=== PATIENT | male | born 1970 | race Caucasian/White ===

== ENCOUNTER 2021-10-13 08:00 | Outpatient (CLI) | payer MEDICARE, MEDICAID ==
--- NOTE | 2021-10-13 14:18 | XRAY Report ---
PROCEDURE: Shoulder 3 View RT INDICATIONS: RIGHT SHOULDER PAIN/LIMITED ROM TECHNIQUE: 3 views of the shoulder were acquired. COMPARISON: None. FINDINGS: Bones: No fractures or dislocations. No suspicious bony lesions. Visualized ribs appear intact. M ild degenerative changes noted involving the AC joint. Soft tissues: No suspicious soft tissue calcifications. IMPRESSION: Mild AC joint hypertrophy. Otherwise unremarkable right shoulder radiographs Reviewed by: Merlin Aylaa MD on 10/13/2021 1:17 PM [place] Approved by: Merlin Ayala MD on 10/13/2021 1:17 PM [place] Station ID: [id number]
== END 2021-10-13 23:59 | disposition home or self-care (01) ==
LOC: DI.S 08:00
PROVIDERS: ATTEND Registered Nurse
DX: M19.011 Primary osteoarthritis, right shoulder (principal)

== ENCOUNTER 2021-11-15 12:28 | Outpatient (CLI) | payer MEDICARE, MEDICAID ==
[2021-11-15] MEDS ORDERED: lidocaine 1% 20 ML MDV ONE (12:40)
[2021-11-15] MEDS ORDERED: IOTHALAMATE MEGLUMINE 50 ML VIAL ONE (12:40)
[2021-11-15] MEDS ORDERED: GADOBUTROL 10 MMOL/10 ML VIAL ONE (12:41)
[2021-11-15] MEDS ORDERED: GADOBUTROL 7.5 MMOL/7.5 ML VIAL ONE (12:42)
[2021-11-15] MEDS ORDERED: IOTHALAMATE MEGLUMINE 50 ML VIAL IVP ONE (13:49)
[2021-11-15] MEDS ORDERED: lidocaine 1% 20 ML MDV SUBQ ONE (13:50)
[2021-11-15] MEDS ORDERED: GADOBUTROL 7.5 MMOL/7.5 ML VIAL IVP ONE (13:52)
--- NOTE | 2021-11-15 15:44 | MRI Report ---
PROCEDURE: Arthrogram Shoulder RT INDICATIONS: PAIN IN RIGHT SHOULDER TECHNIQUE: After the administration of 12 mL of dilute intra-articular Gadolinium contrast, oblique coronal T1 a nd T2 spin echo with fat saturation, oblique sagittal T1 spin echo with and without fat saturation, o blique sagittal T2 fast spin echo with fat saturation, axial T1 spin echo with fat saturation through the shoulder. COMPARISON: None. Findings: Supraspinatus: Mild tendinopathy with small partial articular and bursal surface tears. Infraspinatus: Mild tendinopathy with interstitial tear. Subscapularis: No evidence of tear. Teres minor: No evidence of tear. Labrum: Deficiency of the superior, posterior labrum, compatible with degenerative change/tear (401-2 4). Biceps tendon: No evidence of subluxation or tear. Acromioclavicular joint: Mild to moderate arthrosis. Muscle: No significant atrophy. Bones: No significant abnormality. Specifically, no evidence of fracture, contusion, or necrosis. Miscellaneous: Small amount of subacromial/subdeltoid bursal fluid. No intra-articular bodies. Intact coracoclavicular ligament. IMPRESSION: 1. Tear of the superior, posterior labrum, likely degenerative. 2. Mild supraspinatus tendinopathy with small partial articular and bursal surface tears 3. Mild infraspinatus tendinopathy with interstitial tear. 4. 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 5. Mild subacromial/subdeltoid bursitis. Reviewed by: Daniel Albright MD on 11/15/2021 3:43 PM PST Approved by: Daniel Albright MD on 11/15/2021 3:43 PM PST Station ID: [id number]
--- NOTE | 2021-11-15 21:47 | XRAY Report ---
PROCEDURE: Arthrogram Needle Placement INDICATIONS: PAIN IN RIGHT SHOULDER CONTRAST: CONTRAST: yes FLUOROSCOPY TIME: FLUORO TIME: 0.4 and NUMBER IMAGES: 63 TECHNIQUE: The indications, alternatives, benefits, risks, and complications of the procedure were explained to the patient. Written informed consent was obtained and placed in the chart. The shoulder was examin ed fluoroscopically and a site for needle placement chosen for entry into the glenohumeral joint from an anterior approach. The skin was prepped and draped in the usual fashion, and 1% lidocaine infilt rated from skin down to joint capsule. A spinal needle was inserted into the glenohumeral joint, and a small amount of iodinated contrast media injected to confirm intra-articular placement of the need le tip. This was followed by approximately 12 mL dilute solution of a gadolinium containing MR contr ast agent. The needle was removed and a dressing was applied. The patient was given postprocedural instructions and sent to the MR suite for MR imaging. FINDINGS: A single fluoroscopic spot image demonstrates intra-articular location of injected iodinated contrast . IMPRESSION: Successful fluoroscopically guided administration of dilute Gadolinium solution into the shoulder albert freed for MR arthrogram. Reviewed by: Kalyani Lamb MD on 11/15/2021 9:46 PM PST Approved by: Kalyani Lamb MD on 11/15/2021 9:46 PM PST Station ID: [id number]
== END 2021-11-15 12:29 | disposition home or self-care (01) ==
LOC: DI 12:28
PROVIDERS: ATTEND Registered Nurse
DX: S43.431A Superior glenoid labrum lesion of right shoulder, initial encounter (principal); M75.81 Other shoulder lesions, right shoulder; M75.51 Bursitis of right shoulder; S46.021A Laceration of muscle(s) and tendon(s) of the rotator cuff of right shoulder, initial encounter
CPT/HCPCS: 23350; 73222; 77002; A9585; Q9961

== ENCOUNTER 2022-04-03 08:00 | Outpatient (CLI) | payer MEDICARE, MEDICAID ==
--- NOTE | 2022-04-03 17:14 | XRAY Report ---
PROCEDURE: Chest 2 View X-Ray INDICATIONS: ACUTE COUGH TECHNIQUE: 2 view(s) of the chest. COMPARISON: None. FINDINGS: Surgical changes and devices: None. Lungs and pleura: No pleural effusions or pneumothorax. Lungs are clear. Mediastinum: Mediastinal contours are normal. Heart size is normal. Bones and chest wall: No suspicious bony abnormalities. Soft tissues appear unremarkable. IMPRESSION: No acute radiographic abnormality in the chest. Reviewed by: Ian Nicholson MD on 04/03/2022 5:13 PM PDT Approved by: Ian Nicholson MD on 04/03/2022 5:13 PM PDT Station ID: [id number]
== END 2022-04-03 23:59 | disposition home or self-care (01) ==
LOC: DI.S 08:00
PROVIDERS: ATTEND Registered Nurse
DX: R05.1 Acute cough (principal)

== ENCOUNTER 2023-02-27 11:52 | Outpatient (CLI) | payer MEDICARE ==
[2023-02-27 15:00] LABS: ESTIMATED AVERAGE GLUCOSE 91 mg/dL (70-100); HEMOGLOBIN A1c% 4.8 % (4.27-6.07)
[2023-02-27 15:01] LABS: ALBUMIN 4.1 g/dL (3.2-5.5); ALKALINE PHOSPHATASE 44 IU/L (42-121); ALT ALANINE AMINOTRANSFERASE 21 IU/L (10-60); AST ASPARTATE AMINOTRANSFERASE 19 IU/L (10-42); BILIRUBIN,TOTAL 0.5 mg/dL (0.2-1.0); CHOL/HDL RATIO 4.7 (<5.0); CHOLESTEROL 179 mg/dL; HDL CHOLESTEROL 38 mg/dL; TOTAL PROTEIN 7.3 g/dL (6.7-8.2); TRIGLYCERIDES 592 mg/dL; VALPROIC ACID (DEPAKOTE) 107.8 ug/mL
[2023-02-27 15:02] LABS: BILIRUBIN,DIRECT < 0.1 mg/dL (0.1-0.5)
[2023-02-27 15:36] LABS: LDL CHOLESTEROL,DIRECT 88 mg/dL; LDLD/HDL RATIO 2.3 (<3.6)
== END 2023-02-27 11:53 | disposition home or self-care (01) ==
LOC: LAB.S 11:52
PROVIDERS: ATTEND Nurse Practitioner Psychiatric/Mental Health
DX: F31.81 Bipolar II disorder (principal); F90.0 Attention-deficit hyperactivity disorder, predominantly inattentive type
CPT/HCPCS: 36415; 80061; 80076; 80164; 83036; 83721